=== PATIENT | female | born 1960 | race African-American/Black ===

== ENCOUNTER 2017-01-15 10:44 | Inpatient (IN) ==
[2017-01-15 11:18] VITALS: BMI 41.6
[2017-01-15 11:37] LABS: BASOPHILS # (AUTO) 0.1 K/uL (0-0.2); BASOPHILS % (AUTO) 0.8 % (0.0-3.0); EOSINOPHILS # (AUTO) 0.3 K/ul (0.0-0.7); EOSINOPHILS % (AUTO) 2.6 % (0.0-7.0); HEMATOCRIT 41.4 % (37.0-47.0); HEMOGLOBIN 13.5 g/dl (12.0-16.0); IMMATURE GRANULOCYTE % (AUTO) 0.4 % (0.0-5.0); LYMPHOCYTES # (AUTO) 2.3 K/uL (0.60-3.4); LYMPHOCYTES % (AUTO) 21.5 (10.0-50.0); MEAN CORPUSCULAR HEMOGLOBIN 32.5 pg (27.0-31.0); MEAN CORPUSCULAR HGB CONC 32.6 (31.8-35.4); MEAN CORPUSCULAR VOLUME 99.8 fl (81.0-99.0); MONOCYTES # (AUTO) 0.7 K/uL (0.4-2.0); MONOCYTES % (AUTO) 6.1 (0-10); NEUTROPHILS # (AUTO) 7.3 K/ul (2.0-6.9); NEUTROPHILS % (AUTO) 68.6; PLATELET COUNT 273 10^3/uL (140-440); RED BLOOD COUNT 4.15 10^6/ul (4.20-5.40)
[2017-01-15] MEDS: SODIUM CHLORIDE 1,000 ML IV SCH (11:38)
[2017-01-15] MEDS ORDERED: COLACE PO PRN (11:46)
[2017-01-15] MEDS ORDERED: MIRALAX PO PRN (11:46)
[2017-01-15 11:56] LABS: FLU INTERNAL QC INTERNAL QC VALID; RAPID FLU A NEGATIVE (NEGATIVE); RAPID FLU B NEGATIVE (NEGATIVE)
[2017-01-15 11:58] LABS: ALBUMIN 3.5 g/dL (3.4-5.0); ALBUMIN/GLOBULIN RATIO 0.81; ANION GAP 12.3; BILIRUBIN,TOTAL 0.32 mg/dL (0.00-1.20); BUN/CREATININE RATIO 11.39; CALCIUM 9.3 mg/dL (8.2-10.2); CREATININE 0.79 mg/dL (0.60-1.30); POTASSIUM 4.3 mmol/L (3.5-5.10); TOTAL PROTEIN 7.8 g/dL (6.4-8.2)
[2017-01-15] MEDS: SOLU-MEDROL 40 MG IVP SCH ×2 (12:05→20:34)
[2017-01-15] MEDS: LEVAQUIN 750 MG in PREMIX 150 ML D5W 1 BAG IV SCH (12:05)
[2017-01-15] MEDS: FLEXERIL PO SCH ×3 (13:30→20:33)
[2017-01-15] MEDS: DUONEB NEB SCH ×3 (14:12→21:19)
[2017-01-15] MEDS ORDERED: NON-FORMULARY MEDICATION (Pregabalin [Lyrica] 150 MG) PO SCH ×22 (15:00)
[2017-01-15] MEDS: LYRICA PO SCH ×2 (15:21→20:33)
--- NOTE | 2017-01-15 15:46 | DI ---
EXAM: Two views of the chest. History: Pneumonia Comparison: Chest radiograph 01/15/2015 Findings: Heart size is within normal limits. No appreciable pleural fluid and no pneumothorax. N o acute osseous abnormalities. No consolidation. Air distended loops of bowel seen within the left abdomen. There is thickening of fissure within the right midlung. Impression: No acute cardiopulmonary process.
[2017-01-15] MEDS: ABILIFY PO SCH (20:34)
[2017-01-15] MEDS: CYMBALTA PO SCH (20:34)
[2017-01-15] MEDS ORDERED: NON-FORMULARY MEDICATION (Duloxetine Hcl [Cymbalta] 60 MG) PO SCH ×22 (21:00)
[2017-01-15] MEDS ORDERED: AMBIEN PO SCH (21:00)
[2017-01-15] MEDS ORDERED: ARIPIPRAZOLE 15 MG PO SCH (21:00)
[2017-01-15] MEDS ORDERED: NON-FORMULARY MEDICATION (Zolpidem Tartrate [Ambien] 10 MG) PO SCH (21:00)
[2017-01-16] MEDS: DUONEB NEB SCH ×6 (02:31→21:53)
[2017-01-16 05:17] LABS: BASOPHILS % (AUTO) 0.1 % (0.0-3.0); HEMATOCRIT 37.8 % (37.0-47.0); HEMOGLOBIN 11.9 g/dl (12.0-16.0); IMMATURE GRANULOCYTE % (AUTO) 0.3 % (0.0-5.0); LYMPHOCYTES # (AUTO) 1.4 K/uL (0.60-3.4); LYMPHOCYTES % (AUTO) 13.8 (10.0-50.0); MEAN CORPUSCULAR HEMOGLOBIN 31.6 pg (27.0-31.0); MEAN CORPUSCULAR HGB CONC 31.5 (31.8-35.4); MEAN CORPUSCULAR VOLUME 100.3 fl (81.0-99.0); MONOCYTES # (AUTO) 0.8 K/uL (0.4-2.0); MONOCYTES % (AUTO) 8.1 (0-10); NEUTROPHILS # (AUTO) 7.6 K/ul (2.0-6.9); NEUTROPHILS % (AUTO) 77.7; PLATELET COUNT 252 10^3/uL (140-440); RED BLOOD COUNT 3.77 10^6/ul (4.20-5.40); WHITE BLOOD COUNT 9.82 K/ul (4.6-10.2)
[2017-01-16] MEDS: FLEXERIL PO SCH ×4 (05:57→20:32)
[2017-01-16 06:05] LABS: ALBUMIN/GLOBULIN RATIO 0.77; ANION GAP 13.8; BILIRUBIN,TOTAL 0.19 mg/dL (0.00-1.20); BUN/CREATININE RATIO 16.66; CALCIUM 8.7 mg/dL (8.2-10.2); CREATININE 0.72 mg/dL (0.60-1.30); POTASSIUM 4.8 mmol/L (3.5-5.10); TOTAL PROTEIN 6.9 g/dL (6.4-8.2)
[2017-01-16] MEDS: LOVENOX SUBCUT SCH ×2 (06:30→08:43)
[2017-01-16] MEDS: CYMBALTA PO SCH ×2 (08:42→20:30)
[2017-01-16] MEDS: LYRICA PO SCH ×3 (08:42→20:31)
[2017-01-16] MEDS: MYRBETRIQ PO SCH (08:42)
[2017-01-16] MEDS ORDERED: NON-FORMULARY MEDICATION (Mirabegron [Myrbetriq] 50 MG) PO SCH (09:00)
[2017-01-16] MEDS: LEVAQUIN 750 MG in PREMIX 150 ML D5W 1 BAG IV SCH (10:22)
[2017-01-16] MEDS: HUMULIN R SUBCUT PRN (11:37)
[2017-01-16] MEDS: SOLU-MEDROL 40 MG IVP SCH ×2 (12:00→20:33)
[2017-01-16] MEDS: SODIUM CHLORIDE 1,000 ML IV SCH (14:29)
[2017-01-16] MEDS: ABILIFY PO SCH (20:29)
[2017-01-16] MEDS: AMBIEN PO SCH (20:31)
[2017-01-16] MEDS: TESSALON PERLES PO PRN (23:34)
[2017-01-17] MEDS: DUONEB NEB SCH ×3 (01:19→10:13)
[2017-01-17] MEDS: FLEXERIL PO SCH ×5 (05:35→20:56)
[2017-01-17 05:48] LABS: BASOPHILS % (AUTO) 0.1 % (0.0-3.0); HEMATOCRIT 36.5 % (37.0-47.0); HEMOGLOBIN 11.7 g/dl (12.0-16.0); IMMATURE GRANULOCYTE % (AUTO) 0.7 % (0.0-5.0); LYMPHOCYTES # (AUTO) 1.8 K/uL (0.60-3.4); LYMPHOCYTES % (AUTO) 17.8 (10.0-50.0); MEAN CORPUSCULAR HEMOGLOBIN 32.5 pg (27.0-31.0); MEAN CORPUSCULAR HGB CONC 32.1 (31.8-35.4); MEAN CORPUSCULAR VOLUME 101.4 fl (81.0-99.0); MONOCYTES # (AUTO) 0.9 K/uL (0.4-2.0); MONOCYTES % (AUTO) 8.9 (0-10); NEUTROPHILS # (AUTO) 7.3 K/ul (2.0-6.9); NEUTROPHILS % (AUTO) 72.5; PLATELET COUNT 240 10^3/uL (140-440); WHITE BLOOD COUNT 10.08 K/ul (4.6-10.2)
[2017-01-17 06:05] LABS: ALBUMIN 2.9 g/dL (3.4-5.0); ALBUMIN/GLOBULIN RATIO 0.76; ANION GAP 13.7; BILIRUBIN,TOTAL 0.23 mg/dL (0.00-1.20); BUN/CREATININE RATIO 12.5; CALCIUM 8.9 mg/dL (8.2-10.2); CREATININE 0.72 mg/dL (0.60-1.30); POTASSIUM 4.7 mmol/L (3.5-5.10); TOTAL PROTEIN 6.7 g/dL (6.4-8.2)
[2017-01-17] MEDS: CYMBALTA PO SCH ×2 (08:10→20:57)
[2017-01-17] MEDS: LOVENOX SUBCUT SCH (08:11)
[2017-01-17] MEDS: MYRBETRIQ PO SCH (08:11)
[2017-01-17] MEDS: LYRICA PO SCH ×3 (08:11→20:57)
[2017-01-17] MEDS: LEVAQUIN 750 MG in PREMIX 150 ML D5W 1 BAG IV SCH (08:18)
[2017-01-17] MEDS: SOLU-MEDROL 40 MG IVP SCH (09:46)
[2017-01-17] MEDS: OMNICEF PO SCH ×2 (13:20→20:57)
[2017-01-17] MEDS: MUCINEX PO SCH ×2 (13:20→20:56)
[2017-01-17] MEDS: HUMULIN R SUBCUT PRN ×2 (14:18→17:40)
[2017-01-17] MEDS: SODIUM CHLORIDE 1,000 ML IV SCH (15:25)
[2017-01-17] MEDS: XOPENEX 1.25 MG NEB SCH ×2 (17:40→23:08)
[2017-01-17] MEDS: ABILIFY PO SCH (20:57)
[2017-01-17] MEDS: AMBIEN PO SCH (20:57)
[2017-01-18] MEDS: TESSALON PERLES PO PRN (00:31)
[2017-01-18] MEDS: XOPENEX 1.25 MG NEB SCH ×2 (05:02→11:03)
[2017-01-18] MEDS: FLEXERIL PO SCH ×3 (05:35→16:56)
[2017-01-18 06:15] LABS: BASOPHILS # (AUTO) 0.1 K/uL (0-0.2); BASOPHILS % (AUTO) 0.5 % (0.0-3.0); EOSINOPHILS # (AUTO) 0.1 K/ul (0.0-0.7); EOSINOPHILS % (AUTO) 0.6 % (0.0-7.0); HEMATOCRIT 37.7 % (37.0-47.0); HEMOGLOBIN 11.9 g/dl (12.0-16.0); IMMATURE GRANULOCYTE % (AUTO) 0.6 % (0.0-5.0); LYMPHOCYTES % (AUTO) 45.6 (10.0-50.0); MEAN CORPUSCULAR HEMOGLOBIN 31.8 pg (27.0-31.0); MEAN CORPUSCULAR HGB CONC 31.6 (31.8-35.4); MEAN CORPUSCULAR VOLUME 100.8 fl (81.0-99.0); MONOCYTES % (AUTO) 9.3 (0-10); NEUTROPHILS # (AUTO) 4.8 K/ul (2.0-6.9); NEUTROPHILS % (AUTO) 43.4; PLATELET COUNT 260 10^3/uL (140-440); RED BLOOD COUNT 3.74 10^6/ul (4.20-5.40); WHITE BLOOD COUNT 11.04 K/ul (4.6-10.2)
[2017-01-18 06:36] LABS: ALBUMIN 2.9 g/dL (3.4-5.0); ALBUMIN/GLOBULIN RATIO 0.76; ANION GAP 13.5; BILIRUBIN,TOTAL 0.39 mg/dL (0.00-1.20); BUN/CREATININE RATIO 16.45; CALCIUM 8.8 mg/dL (8.2-10.2); CREATININE 0.79 mg/dL (0.60-1.30); POTASSIUM 4.5 mmol/L (3.5-5.10); TOTAL PROTEIN 6.7 g/dL (6.4-8.2)
[2017-01-18] MEDS ORDERED: PREDNISONE PO SCH (08:00)
[2017-01-18] MEDS: CYMBALTA PO SCH (09:36)
[2017-01-18] MEDS: LYRICA PO SCH ×2 (09:36→15:18)
[2017-01-18] MEDS: LOVENOX SUBCUT SCH (09:36)
[2017-01-18] MEDS: MUCINEX PO SCH (09:37)
[2017-01-18] MEDS: MYRBETRIQ PO SCH (09:37)
[2017-01-18] MEDS: OMNICEF PO SCH (09:37)
[2017-01-18 11:35] VITALS: TEMP 97.8
[2017-01-18] MEDS: SODIUM CHLORIDE 1,000 ML IV SCH (15:18)
[2017-01-18 16:04] VITALS: BP 159/89
--- NOTE | 2017-03-14 13:03 | HP ---
CHIEF COMPLAINT: " I can't breath and I'm wheezing I think I have pneumonia." DISCUSSION: This is a 56 year old lady with a history of asthma who has been dealing with cough, congestion, low grade fever, coughing up purulent sputum with wheezing and shortness of breath. There has been no hemoptysis. She has been started on antibiotics despite this along with Mucinex. She has had increasing, cough, congestion and shortness of breath and wheezing. She can not even do one to two because of the wheezing. She was very concerned about pneumonia. A lung examine did reveal evidence of diffused expiratory wheezes and occasional rales at this pointe because she was not improving as an outpatient she was subsequently admitted to my services for steroids, antibiotics, bronchial dilators and treatment what I thought was going to be a pneumonia. MEDICATIONS: Ambien Lyrica Miralax Myrbetriq Flexeril Cymbalta Abilify Omnicef Mucinex Prednisone Symbicort ALLERGIES: Aspirin Caffeine Celebrex Ativan Norflex PAST MEDICAL HISTORY: Chronic insomnia Chronic low back pain Depression Asthma SURGICAL HISTORY: Cholecystectomy Hysterectomy Right knee, 2014 SOCIAL HISTORY: Previous smoker, no alcohol or illicit drug use noted. She is and she has much family support. FAMILY HISTORY: Review and thought not to be pertinent to discussion. REVIEW OF SYSTEMS: She has had headaches only with coughing. Denies any sore throat she has had cough and wheezing. Shortness of breath on minimal exertion. No hemoptysis, abdominal pain blood in the stool, urinary symptoms or seizures. PHYSICAL EXAMINATION: V/S: Temperature 100, pulse 80, respiration 18, blood pressure 130/80 HEENT: Pupils are round. NECK: Supple. CHEST: Course expiratory wheezes with scattered bronchi. CARDIOVASCULAR: Regular rate and rhythm. ABDOMEN: Soft, nontender.Obese EXTREMITIES: Distal extremities without cyanosis or edema. ASSESSMENT: 1. Asthmatic bronchitis question pneumonia PLAN: 1. Admission 2. Steroids 3. Bronchial dilators 4. Antibiotics 5. Please see orders. MTDD
--- NOTE | 2017-03-14 13:08 | DS ---
PRINCIPAL DIAGNOSIS: 1. Asthmatic Bronchitis DISCUSSION: This is a 56 year old lady with a history of asthma who has been dealing with cough, congestion, low grade fever, coughing up purulent sputum with wheezing and shortness of breath. There has been no hemoptysis. She has been started on antibiotics despite this along with Mucinex. She has had increasing, cough, congestion and shortness of breath and wheezing. She can not even do one to two because of the wheezing. She was very concerned about pneumonia. A lung examine did reveal evidence of diffused expiratory wheezes and occasional rales at this pointe because she was not improving as an outpatient she was subsequently admitted to my services for steroids, antibiotics, bronchial dilators and treatment what I thought was going to be a pneumonia. CLINICAL COURSE: The patient was admitted to my services and started on steroids, antibiotics and bronchial dilators. She did rapidly defervesce. Her chest x-ray is going to be clear once we initiated IV steroids her cough became more productive and she was less short of breath. She was able to ambulate and we began to wean the steroids and at the time of discharge she was feeling much better. The patient was discharged with antibiotics Symbicort, Mucinex as well as tapering dose of Prednisone. We are going to followup in the office next week. Please see orders. MTDD
== END 2017-01-18 17:54 | disposition home or self-care (01) | DRG 203 ==
LOC: MEDSURG B 10:44
PROVIDERS: ADMIT Family Medicine; ATTEND Family Medicine
DX: J45.909 Unspecified asthma, uncomplicated (principal); R06.02 Shortness of breath; R50.9 Fever, unspecified; Z79.899 Other long term (current) drug therapy
CPT/HCPCS: 36415; 80053; 82962; 83880; 85025; 85379; 87040; 87804; 93005; 93010; 94640

== ENCOUNTER 2018-07-03 09:12 | Outpatient (CLI) ==
--- NOTE | 2018-07-04 09:08 | MRI ---
EXAM: Lumbar spine MRI without contrast. HISTORY: Low back pain. COMPARISON: Lumbar spine MRI 10/19/2016. TECHNIQUE: Multiplanar, multisequence MR images were acquired lumbar spine without contrast. FINDINGS: Conus medullaris ends at L1-2 and has normal morphology and signal intensity. Five non-ri b-bearing lumbar vertebra are present. There is mild rotatory thoracolumbar scoliosis, convex right at L1-2 and convex left at L4-5. The lumbar vertebra are normal in height and intrinsic bone marrow signal. There is desiccation of the lumbar intervertebral discs from L1-2 through L4-5 with vacuum p henomenon at L1-2, L2-3 and L3-4. There is osteophytosis with mild endplate irregularity and faint m odic type 1 endplate changes at L1-2 and osteophytosis with moderate to marked disc space narrowing, moderate endplate irregularity and moderately extensive mixed modic type 1 and type 2 endplate change s left laterally at L2-3 and right laterally at L4-5. These findings have progressed at L2-3 with de velopment of mixed modic type 1 and type 2 endplate changes and bright STIR signal edema in the inter vertebral disc. There is mild to moderate disc space narrowing at L3-4 with ventral spondylosis and mild modic type 1 anterior endplate changes. The partially visualized liver, spleen and both kidneys are unremarkable. There are no paravertebral masses. L1-2: There is a mild disc bulge and mild bilateral facet arthropathy and ligamentum flavum hypertro phy. This causes mild left neural foraminal stenosis. There is no central canal stenosis. L2-3: There is a mild disc bulge that is asymmetric to the left with left lateral/far endplate osteo phytes that narrows the inferior left neural foramen and may encroach on the exiting left L2 nerve. Mild bilateral hypertrophic facet arthropathy and ligamentum flavum hypertrophy is present and there is a small left facet effusion. Prominent dorsal epidural fat is present and there is focal bright T 2 signal fluid or edema in the left posterior intervertebral disc that is new compared to prior MRI. There is mild left lateral recess stenosis with encroachment on the left L3 nerve roots and minor ri ght and mild-moderate left neural foraminal stenosis. There is no central canal stenosis. L3-4: There is a mild disc bulge that is asymmetric to the left and mild bilateral hypertrophic face t arthropathy and ligamentum flavum hypertrophy. This causes minimal narrowing of the neural foramina bilaterally, greater on the right. There is no central canal stenosis. L4-5: There is mild diffuse disc bulge that is asymmetric to the right with a possible small right p osterolateral disc protrusion. This effaces the right ventral thecal sac and narrows the inferior ri ght neural foramen with encroachment on the right L4 nerve. Mild bilateral facet arthropathy and lig amentum flavum hypertrophy and small bilateral facet effusions are present. There is marked right an d minor left neural foraminal stenosis. L5-S1: The intervertebral disc is normal. There is mild bilateral hypertrophic facet arthropathy an d ligamentum flavum hypertrophy with small bilateral facet effusions, larger on the left. There is m ild right and minor left neural foraminal stenosis. There is no central canal stenosis. IMPRESSION: 1. No change mild thoracolumbar scoliosis, convex right at L1-L1, convex left at L4-5. 2. Moderate lumbar degenerative spondylosis with progressive degenerative changes at L2-3 where ther e is now bright STIR signal edema in the intervertebral disc. 3. Mild to moderate left L2-3 and marked right L4-5 neural foraminal stenosis.
== END 2018-07-03 09:13 | disposition home or self-care (01) ==
LOC: RAD 09:12
PROVIDERS: ATTEND Nurse Practitioner
DX: M54.5 Low back pain (principal)

== ENCOUNTER 2018-08-14 08:25 | Outpatient (CLI) ==
--- NOTE | 2018-08-14 09:24 | US ---
EXAM: Bilateral lower extremity venous Doppler History: Bilateral lower extremity pain. Technique: Multiple sonographic images through the bilateral lower extremities were obtained. Color duplex Doppler was used to interrogate vascular flow. Findings: The bilateral common femoral, greater saphenous, profunda, superficial femoral, popliteal, peroneal and posterior tibial veins demonstrate spontaneous flow with normal compression and normal augmentation. The bilateral anterior tibial veins were not well seen due to the edema. Impression: No sonographic evidence for deep venous thrombosis.
== END 2018-08-14 08:26 | disposition home or self-care (01) ==
LOC: RAD 08:25
PROVIDERS: ATTEND Family Medicine
DX: M79.604 Pain in right leg (principal); M79.605 Pain in left leg